=== PATIENT | female | born 1995 | race Caucasian/White ===

== ENCOUNTER 2019-01-03 16:43 | Emergency (ER) | payer MEDICAID, SELFPAY ==
[2019-01-03 16:44] VITALS: BP 137/78; PULSE 75; RESP 20; TEMP 36; O2SAT 96; BMI 39.4
--- NOTE | 2019-01-03 17:11 | ED.DCSUM_ITS ---
History of Present Illness Chief Complaint: Anxiety Detail of Chief Complaint: I need help. Informant: Patient, Family Narrative: Patient presents with anxiety and depression. She was diagnosed with bipolar disorder this spring. Over the last 4 months she is been on 5 different medications and is not finding anything to help control her symptoms. She was most recently on lithium. She stopped this medication 1 week ago because it was, advancing nausea, vomiting, diarrhea, and dizziness. She had been given some Ativan to use intermittently for anxiety but is currently out of this as well. Her psychiatrist is Dr. Fabian in [place]. She also sees a cou nselor here locally at the [facility]. She was seen by them today and they recommended she come to the emergency room. Past Medical History - Allergies and Home Meds Allergies/Adverse Reactions: Allergies acetaminophen [From Tylenol] Allergy (Verified 01/03/19 16:44) Hives morphine Allergy (Verified 01/03/19 16:44) Hives Prior records reviewed: Yes Past Medical History: - - Reviewed Lives: With Family Review of Systems General: Denies: Chills, Fever Eyes: Denies: Visual changes - bilaterally ENT: Denies: Bilateral ear pain Cardiovascular: Denies: Chest pain Respiratory: Denies: Dyspnea Gastrointestinal: Denies: Abdominal pain, Vomiting Genitourinary: Denies: Dysuria Skin: Denies: Rash Neurological: Denies: Headache Psych: Reports: Anxiety Hematologic: Denies: Easy bruising Allergy: Denies: Uticaria Physical Exam Vital Signs/Narrative: Vital Signs Temp Pulse Resp BP Pulse Ox 01/03/19 16:44 96.8 F L 75 20 H 137/78 H 96 Inital Vital Signs reviewed: Yes General: Well nourished, Well developed Head: Normocephalic ENT: Moist mucous membranes Neck: Supple Cardiovascular: Regular rate, Regular rhythm Respiratory: No distress, CTA bilaterally Abdomen: Soft, Nontender Extremities: Nontender Skin: Normal color Neurological: Alert, Oriented x3 Psych: Depressed, - - Patient appears depressed and tearful. She is having difficulty with sleep and with diet. She denies suicidal or homicidal ideation.. Negative for: Suicidal thoughts, Homicidal thoughts Diagnostic/Tx/Re-eval Laboratory Results 01/03/19 01/03/19 01/03/19 16:58 17:30 17:30 WBC 12.1 H RBC 4.59 Hgb 14.5 Hct 42.9 MCV 93.5 MCH 31.6 MCHC 33.8 RDW Std Deviation 42.3 RDW Coeff of Mena 12.3 Plt Count 323 MPV 9.1 Immature Gran % (Auto) 1.400 H Neut % (Auto) 68.0 Lymph % (Auto) 21.2 [place] % (Auto) 7.4 Eos % (Auto) 1.0 Baso % (Auto) 1.0 Absolute Neuts (auto) 8.2 H Absolute Lymphs (auto) 2.56 Nucleated RBC % 0 Sodium 141 Potassium 3.7 Chloride 113 H Carbon Dioxide 24.0 Anion Gap 4 L BUN 12 Creatinine 0.90 Estim Creat Clear Calc 87.48 Est GFR (MDRD) Af Amer 100 Est GFR (MDRD) Non-Af 82 BUN/Creatinine Ratio 13.4 Glucose 98 Calcium 8.8 TSH 2.38 Serum , Qual Urine Opiates Screen NEGATIVE Urine Methadone Screen NEGATIVE Ur Barbiturates Screen NEGATIVE Ur Phencyclidine Scrn NEGATIVE Ur Amphetamines Screen NEGATIVE U Methamphetamin-MDMA NEGATIVE U Benzodiazepines Scrn NEGATIVE Urine Cocaine Screen NEGATIVE U Cannabinoids Screen POSITIVE H Ur Drug Screen Comment Ethyl Alcohol 01/03/19 01/03/19 17:30 17:30 WBC RBC Hgb Hct MCV MCH MCHC RDW Std Deviation RDW Coeff of Mena Plt Count MPV Immature Gran % (Auto) Neut % (Auto) Lymph % (Auto) [place] % (Auto) Eos % (Auto) Baso % (Auto) Absolute Neuts (auto) Absolute Lymphs (auto) Nucleated RBC % Sodium Potassium Chloride Carbon Dioxide Anion Gap BUN Creatinine Estim Creat Clear Calc Est GFR (MDRD) Af Amer Est GFR (MDRD) Non-Af BUN/Creatinine Ratio Glucose Calcium TSH Serum , Qual NEGATIVE Urine Opiates Screen Urine Methadone Screen Ur Barbiturates Screen Ur Phencyclidine Scrn Ur Amphetamines Screen U Methamphetamin-MDMA U Benzodiazepines Scrn Urine Cocaine Screen U Cannabinoids Screen Ur Drug Screen Comment Ethyl Alcohol 5.0 Patient was seen by Jay from the counseling center. She been given 1 mg of p.o. Ativan here to help with anxiety. Patient continues to deny suicidal homicidal ideation. She is requesting some kind of medication be given to her before she will leave the hospital. Jay was able to speak with Dr. Fabian, her psychiatrist. He will see her tomorrow. Patient be given a prescription for Ativan, 10 tabs. Disposition: Home ED Disposition - Plan for ED Patient: Disposition: Home or Assisted Living Instructions: Anxiety Reaction Prescriptions: Lorazepam [Ativan] 1 mg PO TID PRN #10 tablet PRN Reason: Anxiety Referrals: Counseling,Center [GROUP OF PHYSICIANS] - Additional Instructions: Follow-up with your psychiatrist tomorrow as discussed.
--- NOTE | 2019-01-03 17:27 | ED.RN ---
per dr. jean pt is not suicidal and does not require a sitter.
[2019-01-03] MEDS: LORazepam 1 MG Tablet PO (17:32)
--- NOTE | 2019-01-03 17:47 | ED.RN ---
CALLED [facility], STATES GROVES IS AT ANOTHER FACILITY AND WILL CALL SOON.
[2019-01-03 17:51] LABS: Absolute Lymphocyte Count 2.56 X10^3/uL (0.83-4.51); Absolute Neutrophil Count 8.2 X10^3/uL (2.0-7.7); Basophil# 0.12 X10^3/uL; Eosinophil# 0.12 X10^3/uL; Hematocrit 42.9 % (37-47); Hemoglobin 14.5 g/dL (12.0-15.0); Lymphocyte # 2.56 X10^3/ul (4.0); Lymphocyte % 21.2 % (19-41); Mean Corp Hgb Conc 33.8 g/dL (32-36); Mean Corpuscular Hgb 31.6 pg (27.0-32.0); Mean Corpuscular Volume 93.5 fL (81-99); Mean Platelet Vol. 9.1 fl (6.2-12.0); Monocyte# 0.89 X10^3/uL; Monocyte% 7.4 % (0-10); NRBC Flagged by Analyzer 0 % (0-5); Neutrophil # 8.19 X10^3/uL (2.7-7.7); Platelet Count 323 K/mm3 (150-450); RBC Distribution Width CV 12.3 % (11.6-14.6); RBC Distribution Width SD 42.3 fl (35.1-43.9); Red Blood Count 4.59 M/mm3 (4.2-5.4); White Blood Count 12.1 K/mm3 (4.4-11.0)
[2019-01-03 18:00] LABS: Internal QC Validated? YES +Cl - CLEAR BKGD; Pregnancy, Serum, hCG Quali. NEGATIVE Negative
[2019-01-03 18:08] LABS: Anion Gap 4 (5-15); BUN 12 mg/dL (7-18); BUN/Creat Ratio 13.4 RATIO (10-20); Calcium,Total 8.8 mg/dL (8.5-10.1); Chloride 113 mmol/L (98-107); EST Glomerular Filtration Rate 82 mL/min (>60); Est Glom Filt Rate - Afr Amer 100 mL/min (>60); Estimated Creatinine Clearance 87.48 ml/min; Glucose 98 mg/dL (74-106); Potassium 3.7 mmol/L (3.5-5.1); Sodium Level 141 mmol/L (136-145); Thyroid Stim Hormone (TSH) 2.38 uIU/mL (0.358-3.74)
[2019-01-03 18:18] LABS: Amphetamine Urine VISTA NEGATIVE (<1000 ng/mL); Barbiturate Urine VISTA NEGATIVE (< 200 ng/mL); Benzodiazepine Urine VISTA NEGATIVE (< 200 ng/mL); Cocaine Urine VISTA NEGATIVE (< 300 ng/mL); Ecstacy Urine VISTA NEGATIVE (< 500 ng/mL); Methadone Urine VISTA NEGATIVE (< 300 ng/mL); PCP Urine VISTA NEGATIVE (< 25 ng/mL); THC Urine VISTA POSITIVE (< 50 ng/mL); Vista UDS pH Range 5
--- NOTE | 2019-01-03 18:24 | ED.RN ---
FUR REPAIR INSPECTOR HILARIO CALLED BACK, STATES IT WILL BE A WHILE UNTIL I COME OVER BECAUSE I AM AT ANOTHER FACILITY
--- NOTE | 2019-01-03 18:26 | ED.RN ---
PER DR. CASH, PT DOES NOT NEED A SITTER. PT MOTHER AT BEDSIDE. PT AWAITING CRISIS COUNSELOR. WILL CONTINUE TO MONITOR.
[2019-01-03 18:31] VITALS: PULSE 78; RESP 16
--- NOTE | 2019-01-03 18:34 | CM.ED ---
Social Work Consulting with Dr. Trujillo. Patient active with the Counseling Center. Dr. Trujillo would like [facility] to evaluate as they are familiar with patient. Dr. Trujillo contacting [facility]. Lyric PINEDO, VIKTORIYA
[2019-01-03 19:48] VITALS: PULSE 68; RESP 16
[2019-01-03 20:19] VITALS: PULSE 74; RESP 16
[2019-01-03 21:22] VITALS: BP 121/73; PULSE 71; RESP 16; O2SAT 97
--- NOTE | 2019-01-03 21:29 | ED.RN ---
per dr miranda perez for patient to take home dose of keflex for foot infection. sandwich and drink given at this time.
[2019-01-03 22:08] VITALS: BP 126/78; PULSE 78; RESP 16; O2SAT 98
== END 2019-01-03 22:09 | disposition home or self-care (01) ==
PROVIDERS: Emergency Provider Emergency Medicine
DX: F41.9 Anxiety disorder, unspecified (principal); F31.9 Bipolar disorder, unspecified; Z88.6 Allergy status to analgesic agent
CPT/HCPCS: 80048; 80307; 80320; 84443; 84703; 85025; 99283; G0480